=== PATIENT | female | born 1995 | race Caucasian/White ===

== ENCOUNTER 2023-11-19 12:44 | Emergency (ER) | payer SELFPAY ==
[2023-11-19 14:35] LABS: Bilirubin Neg (Negative); Blood, Urine 250 (Negative); Clarity Clear (Clear); Glucose, Urine (Dipstick) Normal (Negative); Ketone, Urine Negative (Negative); Leukocyte 25 (Negative); Nitrite Negative (Negative); Protein, Urine (Dipstick) 15 mg/dl (Neg-Trace); Urobilinogen Normal mg/dL (Less than 2)
[2023-11-19 14:57] LABS: Bacteria/HPF None Seen HPF (None Seen); CAUTI Indications for Culture Pregnancy; RBC/HPF 0-3 HPF (0-3); WBC/HPF 0-3 HPF (0-3)
[2023-11-19 14:58] LABS: Urine Culture Reflex Yes Yes
== END 2023-11-19 14:50 | disposition home or self-care (01) ==
LOC: CSHERS 12:44
DX: Z32.01 Encounter for pregnancy test, result positive (principal)
CPT/HCPCS: 36415; 81001; 84702; 87086; 99283

== ENCOUNTER 2023-11-21 16:16 | Observation (INO) | payer SELFPAY ==
[2023-11-21] MEDS ORDERED: Ondansetron PF 4 MG/2 ML Vial IVP PRN (20:35)
[2023-11-21] MEDS ORDERED: Ondansetron ODT 4 MG TAB PO PRN (20:35)
[2023-11-21 21:21] LABS: #Basophils 0.02 10x3/uL (0.0-0.2); #Eosinphils 0.15 10x3/uL (0.0-0.5); #Monocytes 0.63 10x3/uL (0.0-1.1); #Neutrophils 7.55 10x3/uL (1.5-8.4); %Basophils 0.2 % (0.0-2.0); %Eosinophils 1.4 % (0.0-6.0); %Lymphocytes 19.5 % (18.0-47.0); %Neutrophils 72.4 % (40.0-75.0); Hematocrit 32.7 % (34.9-44.5); Hemoglobin 10.9 g/dL (12.0-15.5); Mean Corpuscular HGB CONC 33.3 g/dL (32.0-36.0); Mean Corpuscular Hemoglobin 28.2 pg (27.0-33.0); Mean Corpuscular Volume 84.7 fL (81.6-98.3); Mean Platelet Volume 9.8 fL (7.4-10.4); Platelet Count 327 10x3/uL (150-450); RBC Distribution Width 13.8 % (11.5-14.5); Red Blood Cell (RBC) Count 3.86 10x6/uL (3.90-5.03); White Blood Cell (WBC) Count 10.4 10x3/uL (3.5-10.5)
[2023-11-21 21:32] LABS: Prothrombin Time 10.9 sec (9.5-12.1)
[2023-11-21 21:34] LABS: ALT (SGPT) 18 U/L (8-55); AST (SGOT) 15 U/L (5-34); Albumin 3.8 g/dL (3.5-5.0); Alkaline Phosphatase 86 U/L (40-110); Anion Gap 15 mmol/L (10-20); BUN (Urea Nitrogen) 8 mg/dL (7.0-18.7); Bilirubin, Total 0.7 mg/dL (0.2-1.2); Calc. Creatinine Clearance 0 mL/min (70-130); Calcium 9.7 mg/dL (7.8-10.44); Carbon Dioxide 20 mmol/L (22-29); Chloride 108 mmol/L (98-107); Estimated GFR 121; Globulin 3.5 g/dL (2.4-3.5); Glucose 87 mg/dL (70-105); Potassium 3.8 mmol/L (3.5-5.1); Protein, Total 7.3 g/dL (6.0-8.3); Sodium 139 mmol/L (136-145)
[2023-11-21] MEDS: Labetalol HCl 100 MG TAB PO SCH (23:13)
[2023-11-21] MEDS: Sertraline 25 MG TAB PO SCH (23:14)
[2023-11-22 03:50] VITALS: BMI 48.4
[2023-11-22 06:50] LABS: Hematocrit 30.3 % (34.9-44.5); Hemoglobin 9.9 g/dL (12.0-15.5); Mean Corpuscular HGB CONC 32.7 g/dL (32.0-36.0); Mean Corpuscular Hemoglobin 27.9 pg (27.0-33.0); Mean Corpuscular Volume 85.4 fL (81.6-98.3); Mean Platelet Volume 9.8 fL (7.4-10.4); Platelet Count 297 10x3/uL (150-450); RBC Distribution Width 13.7 % (11.5-14.5); Red Blood Cell (RBC) Count 3.55 10x6/uL (3.90-5.03); White Blood Cell (WBC) Count 8.7 10x3/uL (3.5-10.5)
[2023-11-22] MEDS ORDERED: Lidocaine 2% PF 5 ML VIAL ONE (10:36)
[2023-11-22] MEDS ORDERED: PROPOFOL 20 ML ONE (10:36)
[2023-11-22] MEDS ORDERED: Rocuronium Bromide 10 MG/ML (10ML VIAL) ONE (10:36)
[2023-11-22] MEDS ORDERED: Ondansetron PF 4 MG/2 ML Vial ONE (10:36)
[2023-11-22] MEDS ORDERED: Dexamethasone 4 mg/ml Vial ONE (10:36)
[2023-11-22] MEDS ORDERED: fentaNYL 50 mcg/mL 1 mL Vial ONE ×3 (10:37→11:53)
[2023-11-22] MEDS ORDERED: CEFAZOLIN 2 GM VIAL ONE (11:00)
[2023-11-22] MEDS ORDERED: Bupivacaine HCl 0.5%/Epinephrine 1:200,000/PF 30 ml Vial ONE (11:00)
[2023-11-22] MEDS ORDERED: Albuterol HFA (OR) 200 PUFF INH ONE (11:04)
[2023-11-22] MEDS ORDERED: SUGAMMADEX SODIUM 200 MG/2 ML VIAL ONE (11:30)
[2023-11-22] MEDS ORDERED: Ondansetron HCl/PF 8 MG, Admixture Fee 1 EACH in Sodium Chloride 0.9% 50 ML IVPB PRN (13:56)
[2023-11-22] MEDS ORDERED: HYDROcodone/Acetaminophen 5/325 mg Tablet PO PRN (13:57)
[2023-11-22] MEDS ORDERED: Dextrose 5%-Lactated Ringers 1,000 ML IV PRN (13:59)
[2023-11-22] MEDS: HYDROcodone/Acetaminophen 5/325 mg Tablet PO PRN (14:06)
[2023-11-22 16:16] VITALS: BP 126/62; TEMP 98.2
== END 2023-11-22 16:30 | disposition home or self-care (01) ==
LOC: CSHERS 16:16 → CSHPP 22:49
PROVIDERS: ADMIT Obstetrics & Gynecology; ATTEND Obstetrics & Gynecology
PROC: 10T28ZZ Resection of Products of Conception, Ectopic, Via Natural or Artificial Opening Endoscopic (ICD-10-PCS; principal; 2023-11-21)
DX: O00.90 Unspecified ectopic pregnancy without intrauterine pregnancy (principal); R14.0 Abdominal distension (gaseous); K59.00 Constipation, unspecified; F12.90 Cannabis use, unspecified, uncomplicated; I10 Essential (primary) hypertension; F32.A Depression, unspecified; F17.200 Nicotine dependence, unspecified, uncomplicated; G43.909 Migraine, unspecified, not intractable, without status migrainosus; K21.9 Gastro-esophageal reflux disease without esophagitis; Z79.899 Other long term (current) drug therapy; Z88.0 Allergy status to penicillin
CPT/HCPCS: 36415; 76817; 80053; 84702; 85025; 85027; 85610; 85730; 86850; 86900; 86901; 88305; C1889; G0378; J1100; J2001; J2405; J2704; J3010